=== PATIENT | female | born 1950 | race Two or more races ===

== ENCOUNTER 2021-03-03 16:26 | Emergency (ER) | payer OTHER ==
[~2021-03-03] VITALS: Ht 170.2 cm; Wt 98.0 kg
[2021-03-03] MEDS ORDERED: AMIT25TA9 PO (16:35)
[2021-03-03] MEDS ORDERED: [UNRECOGNIZED DRUG - OTHER] (16:35)
[2021-03-03] MEDS ORDERED: HYDR50SY PO (16:35)
[2021-03-03] MEDS ORDERED: AMLO5TAB4 PO (16:35)
[2021-03-03] MEDS ORDERED: ATOR10TA PO (16:35)
[2021-03-03] MEDS ORDERED: ROCALTROL (16:35)
[2021-03-03] MEDS ORDERED: DIAZ1KIT6 RC (16:35)
[2021-03-03] MEDS ORDERED: LASIX (16:35)
[2021-03-03] MEDS ORDERED: POTASSIUM CHLORIDE (16:35)
[2021-03-03] MEDS ORDERED: HYDR1POW18 MC (16:35)
[2021-03-03] MEDS ORDERED: HYDR10CA4 (16:35)
[2021-03-03] MEDS ORDERED: DEXTROSE 50% WATER 50ML SYRINGE IV ONE (17:00)
[2021-03-03 17:51] LABS: BASOPHILS % 0.4 % (0.0-2.0); EOSINOPHILS % 2.3 % (0.0-5.0); HEMATOCRIT. 32.4 % (36.0-48.0); HEMOGLOBIN. 10.6 g/dL (12.0-16.0); LYMPHOCYTES % 13.8 % (20.0-50.0); MEAN CORPUSCULAR HEMOGLOBIN 29.1 pg (28.0-32.0); MEAN CORPUSCULAR VOLUME 88.3 fL (81.0-99.0); MEAN PLATELET VOLUME 8.6 fl (7.4-10.4); MONOCYTES % 9.1 % (2.0-8.0); NEUTROPHILS % 74.4 % (40.0-76.0); PLATELET 313 x1000/uL (130-400); RED BLOOD CELL COUNT 3.66 mill/uL (4.2-5.4); RED CELL DISTRIBUTION WIDTH 13.9 % (11.6-14.6)
[2021-03-03 17:56] LABS: CHLORIDE 103 mEq/L (98-107)
[2021-03-03 18:01] LABS: INR 1.1; PROTHROMBIN TIME 11.5 sec (9.6-11.0)
[2021-03-03] MEDS ORDERED: MAGNESIUM 2 G PREMIX 50 ML IV ONE (18:15)
[2021-03-03] MEDS ORDERED: KCL 20MEQ/100ML PREMIX 100 ML IV ONE (18:15)
[2021-03-03 19:04] LABS: CLARITY URINE CLEAR (CLEAR); COLOR URINE YELLOW (YELLOW); KETONES URINE NEGATIVE (NEGATIVE); LEUKOCYTE ESTERASE URINE NEGATIVE (NEGATIVE); NITRITE URINE NEGATIVE (NEGATIVE); OCCULT BLOOD URINE NEGATIVE (NEGATIVE); PROTEIN URINE NEGATIVE (NEGATIVE); SPECIFIC GRAVITY URINE 1.009 (1.005-1.030); UROBILINOGEN URINE 0.2 E.U./dL (0.2-1.0)
[2021-03-03] MEDS ORDERED: POTASSIUM CHLORIDE 20MEQ TABLET SR PO ONE (19:15)
[2021-03-03 20:42] VITALS: BP 131/59
== END 2021-03-03 21:16 | disposition short-term general hospital (02) ==
LOC: ER 18:24 → CANBEDREQ 21:19
DX: E11.649 Type 2 diabetes mellitus with hypoglycemia without coma (principal); I48.91 Unspecified atrial fibrillation; I10 Essential (primary) hypertension; J45.909 Unspecified asthma, uncomplicated; Z88.2 Allergy status to sulfonamides; Z88.8 Allergy status to other drugs, medicaments and biological substances; Z79.899 Other long term (current) drug therapy; Z79.4 Long term (current) use of insulin; Z86.73 Personal history of transient ischemic attack (TIA), and cerebral infarction without residual deficits
CPT/HCPCS: 36415; 71045; 80053; 81003; 82962; 83605; 83690; 84484; 85025; 85610; 93005; 96365; 96368; 96375; 99285; J3475; J3480; J7040